=== PATIENT | female | born 1960 | race Caucasian/White ===

== ENCOUNTER 2023-10-24 09:39 | Emergency (ER) | payer MEDICARE, SELFPAY ==
[2023-10-24 09:45] VITALS: BP 136/92
--- NOTE | 2023-10-24 10:56 | ED.GENMED ---
History of Present Illness
General
Chief Complaint: Back Pain
Source: patient
Time Seen by Provider: 10/24/23 10:32
History of Present Illness
History of Present Illness:
63yoF with a history of osteoporosis presenting for evaluation of back pain. Her pain initially started 3 days ago. She was playing golf and she started to feel 'funny' while playing. She denies any direct trauma or falls. She is primarily having
pain in her left lower back that has been gradually worsening over the past few days. The pain is worse with movement and position changes. The pain radiates to the buttocks and bilateral anterior thighs. She has taken meloxicam without much relief.
She also reports paresthesias in her bilateral feet which started before her back pain. She has been seen by podiatry for this and has an EMG scheduled for next week. She is otherwise asymptomatic and denies any fevers, saddle anesthesia,
incontinence, abdominal pain. No history of cancer or IVDU. No prior back surgeries.
Past History
Past History
ED Past Medical History: Other (IBS, osteoporesis, endometriosus)
Social History
Tobacco: Non-smoker
Phy Exam
General Physical Exam
General Presentation: well appearing and no apparent distress
General age: appears stated age
General Skin: warm and dry
General Habitus: normal
Cardiovascular Exam
Cardiovascular Exam: regular rate/rhythm and normal peripheral pulses (2+ DP pulses bilaterally)
Pulmonary Exam
Pulmonary Exam: no respiratory distress
Gastrointestinal Exam
Gastrointestinal Exam: no cva tenderness
Musculoskeletal Exam
Musculoskeletal Exam: other (Pain to the L lower paraspinal region with position changes. No tenderness to palpation of the lumbar region. No skin changes present. Pain elicited with flexion of bilateral hips. Negative straight leg raise
bilaterally. )
Course
Orders/Labs/Results
Orders:
Orders
10/24/23 10:55
Acetaminophen [Tylenol] 1,000 mg PO NOW STA
Ketorolac [Toradol] 30 mg IM NOW STA
CR Lumbar Spine Comp Min 4 Vw* Urgent
Comment:
Reason For Exam: Low back pain
10/24/23 11:00
Lidocaine [Lidocaine 4% Patch] 1 patch TOPICAL DAILY
Apply Lidocaine patch(s) to:: L lower back
Vital Signs
Initial and Last Documented VS:
Initial Vital Signs
Temp Pulse Resp BP Pulse Ox
98.2 F 76 18 136/92 98
10/24/23 09:45 10/24/23 09:45 10/24/23 09:45 10/24/23 09:45 10/24/23 09:45
Last Documented Vital Signs
Temp Pulse Resp BP Pulse Ox
97.2 F 72 20 131/82 99
10/24/23 12:31 10/24/23 12:31 10/24/23 12:31 10/24/23 12:31 10/24/23 12:31
MDM/Problems Addressed
Differential Diagnosis Includes:
63yoF here with low back pain x 3 days. Preceded by playing golf. No direct trauma. Pain radiates to buttocks and bilateral thighs. Worse with movement. No red flags in history including no fevers, saddle anesthesia, incontinence. She is well
appearing with stable vital signs. No reproducible tenderness on exam. Bilateral lower extremities are neurovascularly intact. Differential diagnosis includes but is not limited to: lumbar strain, muscle spasm, lumbar radiculopathy, sciatica, doubt
fracture
Initial ED plan: Check lumbar spine x-rays. IM Toradol, Tylenol, and lidocaine patches for symptoms.
*Critical Care Note
Total Time (30-74mins, 75-104mins- exclusive of procedures): Not Applicable
Update Note
Update Note:
Lumbar spine x-rays are negative for fracture. Degenerative changes noted. No indication for admission at this time. Will prescribe Medrol dose pack and Robaxin for symptoms. Advised f/u with PCP and orthopedics. ED return precautions discussed. She
was discharged in stable condition.
ED Attending Note
-
Portions of this chart may have been created with voice recognition software.� Occasional wrong word or��sound alike� substitutions may have occurred due to the inherent limitations of voice recognition software.
Discharge Plan
Departure
Patient Disposition: Home (Routine Discharge)
Date of Disposition: 10/24/23
Time of Disposition: 12:35
Patient with high blood pressure during this ER visit?: No
Discharge Problem:
Acute low back pain
Instructions: Low Back Pain (DC)
Prescriptions:
New
methocarbamol 500 mg tablet
500 mg PO Q8H PRN (Reason: muscle spasms) Qty: 21 0RF
methylprednisolone [Medrol (Jimi)] 4 mg tablets,dose pack
See Rx Instructions .ROUTE .COMPLEX Qty: 21 0RF
Rx Instructions:
orally per package directions
No Action
ibuprofen [Advil Liqui-Gel] 200 MG capsule
400 mg PO PRN PRN (Reason: LATHAM)
jttbthgar-QBW-BR-acetaminophen 1 CAP capsule
1 cap PO PRN PRN (Reason: as needed)
Isotonic
1 tab PO DAILY
Patient Comments:
(OTC)
Opc 3
1 pack PO DAILY
Patient Comments:
(OTC)
Referrals:
Torrey Santoro MD [Family Provider] -
Varun Alicea MD [Active] -
Activity Restrictions/Additional Instructions:
Apply heat to affected area. Take ibuprofen 600mg every 6 hours as needed for pain. You may also take Tylenol. Take Robaxin (muscle relaxer) as needed for spasms.
Please follow-up with your family doctor and orthopedics. Return to the ER with any new or worsening symptoms.
Interventions
Interventions:
*Risk Screen - Suicide Last Done: 10/24/23 09:45
*General Assessment Last Done: 10/24/23 09:45
*Neglect/Abuse Screening Last Done: 10/24/23 09:45
ED- Fall Risk Assessment Last Done: 10/24/23 11:24
*ED COVID-19 Vaccine History Last Done: 10/24/23 09:45
*Nursing Disposition Last Done: 10/24/23 12:59
ED-Musculoskeletal Assessment Last Done: 10/24/23 11:24
Discharge Date and Time
Discharge Date/Time: 10/24/23 12:59
Print Language: SLOVENIAN
[2023-10-24] MEDS: TYLENOL 1000 MG PO (11:07)
[2023-10-24] MEDS: TORADOL 30 MG IM (11:07)
[2023-10-24] MEDS: LIDOCAINE 4% PATCH 1 PATCH TOPICAL (11:07)
[2023-10-24 11:24] VITALS: BP 127/71; BMI 22.7
[2023-10-24 12:31] VITALS: BP 131/82
== END 2023-10-24 12:59 | disposition home or self-care (01) ==
LOC: EMR 09:39
PROVIDERS: EMERGENCY PHYSICIAN Emergency Medicine; FAMILY PHYSICIAN Family Medicine
DX: M54.50 Low back pain, unspecified (principal); K58.9 Irritable bowel syndrome, unspecified; M81.0 Age-related osteoporosis without current pathological fracture
CPT/HCPCS: 99283; 96372; 72110

== ENCOUNTER → 2024-02-22 18:11 | Outpatient (REF) | payer MEDICARE, SELFPAY | LOC: PAVMRI 18:11 | PROVIDERS: ATTENDING PHYSICIAN Physical Medicine & Rehabilitation Sports Medicine; FAMILY PHYSICIAN Family Medicine | DX: M47.816 Spondylosis without myelopathy or radiculopathy, lumbar region (principal); R20.0 Anesthesia of skin | CPT/HCPCS: 72148 ==

== ENCOUNTER → 2024-04-12 07:49 | Outpatient (REF) | payer MEDICARE, SELFPAY | LOC: EMG 07:49 | PROVIDERS: ATTENDING PHYSICIAN Physical Medicine & Rehabilitation Sports Medicine; FAMILY PHYSICIAN Nurse Practitioner Family | DX: R20.0 Anesthesia of skin (principal) | CPT/HCPCS: 95886; 95911 ==

== ENCOUNTER → 2024-05-03 06:49 | Outpatient (REF) | payer MEDICARE, SELFPAY | LOC: MRI 06:49 | PROVIDERS: ATTENDING PHYSICIAN Physical Medicine & Rehabilitation Sports Medicine | DX: M54.6 Pain in thoracic spine (principal) | CPT/HCPCS: 72146 ==

== ENCOUNTER → 2024-07-25 10:52 | Outpatient (REF) | payer MEDICARE, SELFPAY | LOC: HWRAD 10:52 | PROVIDERS: ATTENDING PHYSICIAN Physician Assistant; FAMILY PHYSICIAN Nurse Practitioner Family | DX: M81.0 Age-related osteoporosis without current pathological fracture (principal) | CPT/HCPCS: 73552 ==

== ENCOUNTER → 2024-10-08 13:07 | Outpatient (REF) | payer MEDICARE, SELFPAY | LOC: WDC 13:07 | PROVIDERS: ATTENDING PHYSICIAN Nurse Practitioner Family | DX: Z12.31 Encounter for screening mammogram for malignant neoplasm of breast (principal) | CPT/HCPCS: 77063; 77067 ==

== ENCOUNTER → 2024-10-19 08:30 | Outpatient (REF) | payer MEDICARE, SELFPAY | LOC: WDC 08:30 | PROVIDERS: ATTENDING PHYSICIAN Nurse Practitioner Family | DX: R92.8 Other abnormal and inconclusive findings on diagnostic imaging of breast (principal) | CPT/HCPCS: 76642 ==

== ENCOUNTER → 2024-10-29 11:19 | Outpatient (REF) | payer MEDICARE, SELFPAY ==
--- NOTE | 2024-10-29 13:20 | OID.BR.INTR ---
[facility] Navigator - Initial
- -
Date of Contact: 10/29/24
Met with patient. Patient given written information on navigator service available at [facility]. Will follow up as needed per protocol.
== END ==
LOC: WDC 11:19
PROVIDERS: ATTENDING PHYSICIAN Nurse Practitioner Family
DX: N63.22 Unspecified lump in the left breast, upper inner quadrant (principal)
CPT/HCPCS: 19083; 88305; 88341; 88342; 88360; A4648